=== PATIENT | female | born 1985 | race Caucasian/White ===

== ENCOUNTER 2023-12-29 01:33 | Emergency (ER) | payer BC ==
[2023-12-29] MEDS ORDERED: ZOFRAN ODT 4 MG ONE (02:18)
[2023-12-29] MEDS ORDERED: xanAX 0.25 MG ONE (02:18)
[2023-12-29] MEDS ORDERED: Sodium Chloride 0.9% 1000 ML 1,000 ML ONE (02:19)
--- NOTE | 2023-12-29 02:20 | ERPHSYRPT ---
- History of Present Illness Time Seen by Provider: 12/29/23 02:13 Source: patient Exam Limitations: no limitations Patient Subjective Stated Complaint: pt state she has POTS and has had a stressful day and her heart rate has been high since approx 2100. Triage Nursing Assessment: pt alert and oreiented, answers questions approp. pt ambualtes into room with steady gait noted. respirations nonlabored. skinw arm and dry. pupils equal and reactive. pt moves all extremites without diff. heart rate 124 sinus tach on monitor Physician History: 38-year-old female presents to emergency department for evaluation of tachycar mian. Patient has history of POTS. Patient states that she required IV fluids twice a week. She had IV fluids once this week and feels she needs a second infusion. Patient adds that she has been under significant stress. I do feel that this is also contributing to her fast heart rate. No associated chest pain no shortness of breath. No vomiting mild nausea. Symptoms are mild to moderate in intensity. No specific worsening or improving factors. Patient otherwise feels well. Daughter at bedside. She voices no other complaints or concerns at this time. Timing/Duration: today Severity: moderate Modifying Factors: Improves With: nothing Associated Symptoms: nausea Allergies/Adverse Reactions: haloperidol [From Haldol] Allergy (Severe, Verified 11/20/22 08:34) Difficulty Swallowing dystonic metoclopramide [From Reglan] Allergy (Severe, Verified 11/20/22 08:34) Difficulty Swallowing dystonic cetirizine HCl [From Zyrtec] Allergy (Mild, Verified 11/20/22 08:33) erythromycin base [Erythromycin Base] Allergy (Mild, Verified 11/20/22 08:33) ibuprofen Allergy (Mild, Verified 11/20/22 08:33) iodine [Iodine] Allergy (Mild, Verified 11/20/22 08:33) latex [Latex] Allergy (Mild, Verified 11/20/22 08:33) Penicillins Allergy (Mild, Verified 11/20/22 08:33) Sulfa (Sulfonamide Antibiotics) [Sulfa(Sulfonamide Antibiotics)] Allergy (Mild, Verified 11/20/22 08:33) Home Medications: Fludrocortisone Acetate [Florinef] 0.1 mg PO DAILY 07/21/22 [History] Metoprolol Tartrate 25 mg [Lopressor 25MG Tab] 25 mg PO DAILY 07/21/22 [History] Sertraline HCl [Zoloft] 100 mg PO DAILY 07/21/22 [History] PANTOPRAZOLE 40 mg Tablet [Protonix 40MG Tablet] 40 mg PO DAILY 12/29/23 [History] Rimegepant Sulfate [Nurtec Odt] 75 mg PO UD 12/29/23 [History] Hx Tetanus, Diphtheria Vaccination/Date Given: No Hx Influenza Vaccination/Date Given: No Hx Pneumococcal Vaccination/Date Given: No Immunizations Up to Date: No Travel Risk - International Travel Have you traveled outside of the country in past 3 weeks: No - Emerging Infectious Disease Are you exhibiting symptoms associated with any current EIDs: No - Review of Systems Constitutional: No Symptoms, No Fever, No Chills Eyes: No Symptoms Ears, Nose, & Throat: No Symptoms Respiratory: No Symptoms, No Cough, No Dyspnea Cardiac: No Symptoms, No Chest Pain, No Edema, No Syncope Abdominal/Gastrointestinal: No Symptoms, No Abdominal Pain, No Nausea, No Vomiting, No Diarrhea Genitourinary Symptoms: No Symptoms, No Dysuria Musculoskeletal: No Symptoms, No Back Pain, No Neck Pain Skin: No Symptoms, No Rash Neurological: No Symptoms, No Dizziness, No Focal Weakness, No Sensory Changes Psychological: No Symptoms Endocrine: No Symptoms Hematologic/Lymphatic: No Symptoms Immunological/Allergic: No Symptoms All Other Systems: Reviewed and Negative - Past Medical History Pertinent Past Medical History: Yes Neurological History: Migraines ENT History: No Pertinent History Cardiac History: Other Respiratory History: Other Endocrine Medical History: No Pertinent History Musculoskeletal History: Other GI Medical History: Other History: No Pertinent History Psycho-Social History: Anxiety Female Reproductive Disorders: No Pertinent History Other Medical History: CONNECTIVE TISSUE DISEASE, Mehul-danlos syndrome POTS, gastroperisis. peripheral neuropathy, hypotension, syncope, anaphylaxis. - Past Surgical History Past Surgical History: Yes Neuro Surgical History: No Pertinent History Cardiac: No Pertinent History Respiratory: No Pertinent History Gastrointestinal: No Pertinent History Genitourinary: No Pertinent History Musculoskeletal: Other Female Surgical History: Section Other Surgical History: LEFT LEG SURGERY with hardware and 5 subsequent hardware removal surgeries, oneil shoulder surgeries -bicapsular shrinkage,. 2 port placements - Female History Hx Last Menstrual Period: depo shot Hx Now: No - Social History Smoking Status: Former smoker Exposure to second hand smoke: No Drug Use: marijuana Patient Lives Alone: No - Social Determinants of Health Will the patient participate in the screening: Declined to provide - Nursing Vital Signs Nursing Vital Signs: Initial Vital Signs Pulse Rate 120 H 12/29/23 01:38 Respiratory Rate 22 12/29/23 01:38 O2 Sat by Pulse Oximetry 99 12/29/23 01:38 Pain Scale Pain Intensity 4 - Physical Exam General Appearance: no apparent distress, alert Eye Exam: PERRL/EOMI, eyes nml inspection Ears, Nose, Throat Exam: normal ENT inspection, moist mucous membranes Neck Exam: normal inspection, full range of motion Respiratory Exam: normal breath sounds, lungs clear, airway intact, No respiratory distress Cardiovascular Exam: regular rate/rhythm, normal heart sounds, normal peripheral pulses Gastrointestinal/Abdomen Exam: soft, normal bowel sounds, No tenderness, No mass Back Exam: normal inspection, normal range of motion, No CVA tenderness, No vertebral tenderness Extremity Exam: normal inspection, normal range of motion, pelvis stable Neurologic Exam: alert, oriented x 3, cooperative, normal mood/affect, sensation nml, No motor deficits Skin Exam: normal color, warm, dry, No rash Lymphatic Exam: No adenopathy SpO2 Interpretation: normal SpO2: 99 O2 Delivery: Room Air - Course Nursing assessment & vital signs reviewed: Yes EKG Interpreted by Me: RATE ([id number]), Sinus Tach, NORMAL AXIS, NORMAL INTERVALS Ordered Tests: Active Orders 24 hr Category Date Time Status IV Insertion STAT Care 12/29/23 02:14 Active Medication Summary Discontinued Medications Generic Name Dose Route Start Last Admin Trade Name Pola PRN Reason Stop Dose Admin Alprazolam 0.25 mg 12/29/23 02:15 12/29/23 02:28 Alprazolam 0.25 Mg Tablet PO 12/29/23 02:16 0.25 mg STAT ONE Administration Alprazolam Confirm 12/29/23 02:18 Alprazolam 0.25 Mg Tablet Administered 12/29/23 02:19 Dose 0.25 mg .ROUTE .STK-MED ONE Diphenhydramine HCl 25 mg 12/29/23 03:48 12/29/23 03:53 Diphenhydramine Hcl 50 Mg/Ml Vial IV 12/29/23 03:49 25 mg STAT ONE Administration Diphenhydramine HCl Confirm 12/29/23 03:50 Diphenhydramine Hcl 50 Mg/Ml Vial Administered 12/29/23 03:51 Dose 50 mg .ROUTE .STK-MED ONE Sodium Chloride 1,000 mls @ 999 mls/hr 12/29/23 02:14 12/29/23 02:28 Sodium Chloride 0.9% 1000 Ml IV 12/29/23 03:14 999 mls/hr .Q1H1M STA Administration Sodium Chloride Confirm 12/29/23 02:19 Sodium Chloride 0.9% 1000 Ml Administered 12/29/23 02:20 Dose 1,000 mls @ ud .ROUTE .STK-MED ONE Ondansetron HCl 4 mg 12/29/23 02:17 12/29/23 02:28 Zofran 4 Mg/Udtablet Orally Disintegrating PO 12/29/23 02:18 4 mg STAT ONE Administration Ondansetron HCl Confirm 12/29/23 02:18 Zofran 4 Mg/Udtablet Orally Disintegrating Administered 12/29/23 02:19 Dose 4 mg .ROUTE .STK-MED ONE Prochlorperazine Edisylate 10 mg 12/29/23 03:48 12/29/23 03:53 Prochlorperazine Edisylate 10 Mg/2 Ml Vial IV 12/29/23 03:49 10 mg STAT ONE Administration Prochlorperazine Edisylate Confirm 12/29/23 03:50 Prochlorperazine Edisylate 10 Mg/2 Ml Vial Administered 12/29/23 03:51 Dose 10 mg .ROUTE .STK-MED ONE - Progress Progress: improved Progress Note: 38-year-old female with a history of POTS presents to our ED with tachycardia. Patient also experiencing some nausea headache and a stress reaction to a life stressor. Resting tachycardia upon arrival to our ED was 140. Patient received a liter IV fluids, 0.25 mg of Xanax, 25 mg of Benadryl, Zofran as well. Patient was slightly nauseous after the Zofran and complained of a headache. Patient received 10 mg of Compazine. Patient observed heart rate improved to 94. Tachycardia resolved patient asymptomatic requesting discharge. No indication for further workup will discharge home. Patient agrees to follow-up with primary care doctor within 48 hours for reevaluation. Patient voices no other complaints or concerns at this time. Portions of this note were created with voice recognition technology. There may be grammatical, spelling, punctuation or sound alike errors Complexity of problem addressed is moderate acute complicated. No critical care time. Complexity data reviewed and analyzed is none. No specialized testing ordered. Diagnosis made based on history and physical exam. Risk of complication and or risk of morbidity/mortality patient management is moderate. Patient received Xanax in our ED. Vital stable. Time spent to discharge patient approximately 20 minutes. Plan of care established for shared decision making. No social determinants of health present to impede follow-up. Portions of this note were created with voice recognition technology. There may be grammatical, spelling, punctuation or sound alike errors 12/29/23 04:36 Counseled pt/family regarding: lab results, diagnosis - Departure Departure Disposition: Home Clinical Impression: POTS (postural orthostatic tachycardia syndrome), Stress at home Condition: Stable Critical Care Time: No Referrals: HUY RAYMOND [Primary Care Provider] - Follow up/PCP as directed Additional Instructions: Discharge/Care Plan VITALYGEOVANNI EVONNE was seen on 12/29/23 in the Emergency Room. The patient was counseled regarding Diagnosis,Lab results, Imaging studies, need for follow up and when to return to the Emergency Room. Prescriptions given: Discharge Note I have spoken with the patient and/or caregivers. I have explained the patient's condition, diagnosis and treatment plan based on the information available to me at this time. I have answered the patient's and/or caregiver's questions and addressed any concerns. The patient and/or caregivers have as good understanding of the patient's diagnosis, condition and treatment plan as can be expected at this point. The vital signs have been stable. The patient's condition is stable and appropriate for discharge from the emergency department. The patient will pursue further outpatient evaluation with the primary care physician or other designated or consulting physician as outlined in the discharge instructions. The patient and/or caregivers are agreeable to this plan of care and follow-up instructions have been explained in detail. The patient and/or caregivers have received these instruction. The patient/and or caregivers are aware that any significant change in condition or worsening of symptoms should prompt an immediate return to this or the closest emergency department or call 911.
[2023-12-29] MEDS: xanAX 0.25 MG PO ONE (02:28)
[2023-12-29] MEDS: ZOFRAN ODT 4 MG PO ONE (02:28)
[2023-12-29] MEDS: Sodium Chloride 0.9% 1000 ML 1,000 ML IV STA (02:28)
[2023-12-29] MEDS ORDERED: Compazine 10 MG/2 ML ONE (03:50)
[2023-12-29] MEDS ORDERED: BENADRYL 50 MG/ML ONE (03:50)
[2023-12-29] MEDS: BENADRYL 50 MG/ML IV ONE (03:53)
[2023-12-29] MEDS: Compazine 10 MG/2 ML IV ONE (03:53)
[2023-12-29 05:03] VITALS: BP 124/78; PULSE 95; RESP 24; O2SAT 96
== END 2023-12-29 05:09 | disposition home or self-care (01) ==
LOC: ED 01:33
DX: G90.A Postural orthostatic tachycardia syndrome [POTS] (principal); F43.0 Acute stress reaction; Z63.8 Other specified problems related to primary support group; R11.0 Nausea; R51.9 Headache, unspecified; Z79.899 Other long term (current) drug therapy
CPT/HCPCS: 36000; 93005; 96374; 96375; 99284; J1200; J1642; Q0162; A9270-GY